=== PATIENT | male | born 1995 | race Caucasian/White ===

== ENCOUNTER 2024-05-01 11:01 | Inpatient (IN) | payer OTHER ==
[2024-05-01 13:37] VITALS: BMI 25.9
[2024-05-01] MEDS ORDERED: Dextrose 5 %-0.45 % NaCl 1,000 ML IV PRN (13:50)
[2024-05-01] MEDS ORDERED: Senokot S 8.6-50 MG TAB PO PRN (13:50)
[2024-05-01] MEDS ORDERED: Sodium Chloride 0.9% 1,000 ML IV PRN ×4 (13:50)
[2024-05-01] MEDS ORDERED: Acetaminophen 325 MG TAB PO PRN (13:50)
[2024-05-01] MEDS ORDERED: Dextrose 50% Abboject 50 ML SYRINGE SLOW IVP PRN (13:50)
[2024-05-01] MEDS ORDERED: NS 0.9% w/ 20 MEQ KCL 1,000 ML IV PRN ×2 (13:50)
[2024-05-01] MEDS ORDERED: Electrolyte Replacement Protocol FS PRN (14:15)
[2024-05-01 14:37] LABS: Anion Gap 17 mmol/L (10-20); BUN (Urea Nitrogen) 21 mg/dL (8.9-20.6); Calc. Creatinine Clearance 80 mL/min (70-130); Calcium 8.1 mg/dL (7.8-10.44); Carbon Dioxide 17 mmol/L (22-29); Chloride 116 mmol/L (98-107); Estimated GFR 65; Glucose 197 mg/dL (70-105); Potassium 4.3 mmol/L (3.5-5.1); Sodium 146 mmol/L (136-145)
[2024-05-01] MEDS: D5 1/2 NS w/20 mEq KCL 1,000 ML IV PRN (14:37)
[2024-05-01] MEDS: Sodium Bicarb 50 MEQ/50 ML Abboject 8.4% SYRINGE IVP SCH (14:37)
[2024-05-01] MEDS: Lactated Ringer's 1,000 ML IV SCH ×2 (14:37→19:07)
[2024-05-01] MEDS: INSULIN REGULAR IN 0.9 % NACL 100 ML IVPB SCH (14:43)
[2024-05-01 14:52] LABS: Phosphorus 1.1 mg/dL (2.3-4.7)
[2024-05-01] MEDS: Electrolyte Replacement Protocol 1 EACH IVPB ONE (16:13)
[2024-05-01 18:27] LABS: Anion Gap 14 mmol/L (10-20); BUN (Urea Nitrogen) 16 mg/dL (8.9-20.6); Calc. Creatinine Clearance 101 mL/min (70-130); Calcium 7.9 mg/dL (7.8-10.44); Carbon Dioxide 17 mmol/L (22-29); Chloride 114 mmol/L (98-107); Estimated GFR 86; Glucose 233 mg/dL (70-105); Potassium 4.4 mmol/L (3.5-5.1); Sodium 141 mmol/L (136-145)
[2024-05-01] MEDS ORDERED: Dextrose 5% in Water 1,000 ML IV PRN (18:37)
[2024-05-01] MEDS ORDERED: Insulin Lispro 100 UNIT/ML 10 ML VIAL SC PRN (18:37)
[2024-05-01] MEDS ORDERED: Glucagon 1 MG/ML KIT IM PRN (18:37)
[2024-05-01] MEDS: Potassium Phosphate 22 MMOL in Sodium Chloride 0.9% 250 ML 250 ML IVPB SCH (19:07)
[2024-05-01] MEDS: Insulin NPH Human Isophane 100 UNITS/ML (10 ML VIAL) SC SCH (20:43)
[2024-05-01] MEDS: Sodium Bicarbonate Tab 325 MG TAB PO SCH (20:44)
[2024-05-01] MEDS: Magnesium 2 GM/50 ML(in water) 2 GM in Premix 1 BAG IVPB SCH (21:59)
[2024-05-01 22:41] LABS: Anion Gap 11 mmol/L (10-20); BUN (Urea Nitrogen) 13 mg/dL (8.9-20.6); Calc. Creatinine Clearance 125 mL/min (70-130); Carbon Dioxide 21 mmol/L (22-29); Chloride 113 mmol/L (98-107); Estimated GFR 110; Glucose 110 mg/dL (70-105); Potassium 3.8 mmol/L (3.5-5.1); Sodium 141 mmol/L (136-145)
[2024-05-02 01:56] LABS: #Basophils Less than 0.03 10x3/uL (0.0-0.2); #Eosinophils Less than 0.03 10x3/uL (0.0-0.7); %Basophils 0.1 % (0.0-1.0); %Eosinophils 0.1 % (0.0-10.0); %Lymphocytes 9.5 % (21.0-51.0); %Neutrophils 80.7 % (42.0-75.0); Hematocrit 34.2 % (42.0-52.0); Mean Corpuscular HGB CONC 35.1 g/dL (32.0-36.0); Mean Corpuscular Hemoglobin 28.9 pg (27.0-31.0); Mean Corpuscular Volume 82.4 fL (78.0-98.0); Mean Platelet Volume 8.9 fL (7.4-10.4); Platelet Count 245 10x3/uL (130-400); RBC Distribution Width 12.8 % (11.5-14.5); Red Blood Cell (RBC) Count 4.15 mill/uL (4.70-6.10)
[2024-05-02] MEDS: Ondansetron PF 4 MG/2 ML Vial IVP PRN (02:13)
[2024-05-02 02:15] LABS: Anion Gap 14 mmol/L (10-20); BUN (Urea Nitrogen) 10 mg/dL (8.9-20.6); Calc. Creatinine Clearance 117 mL/min (70-130); Carbon Dioxide 20 mmol/L (22-29); Chloride 110 mmol/L (98-107); Estimated GFR 103; Glucose 129 mg/dL (70-105); Potassium 3.5 mmol/L (3.5-5.1); Sodium 140 mmol/L (136-145)
[2024-05-02 02:35] LABS: Calcium 8.1 mg/dL (7.8-10.44)
[2024-05-02 03:00] LABS: ALT (SGPT) 11 U/L (8-55); AST (SGOT) 12 U/L (5-34); Albumin 3.1 g/dL (3.5-5.0); Alkaline Phosphatase 91 U/L (40-110); Anion Gap 13 mmol/L (10-20); BUN (Urea Nitrogen) 11 mg/dL (8.9-20.6); Bilirubin, Total 0.4 mg/dL (0.2-1.2); Calc. Creatinine Clearance 118 mL/min (70-130); Calcium 8.2 mg/dL (7.8-10.44); Carbon Dioxide 21 mmol/L (22-29); Chloride 110 mmol/L (98-107); Estimated GFR 104; Globulin 2.6 g/dL (2.4-3.5); Glucose 129 mg/dL (70-105); Phosphorus 2.5 mg/dL (2.3-4.7); Potassium 3.5 mmol/L (3.5-5.1); Protein, Total 5.7 g/dL (6.0-8.3); Sodium 140 mmol/L (136-145)
[2024-05-02 07:15] LABS: Anion Gap 14 mmol/L (10-20); BUN (Urea Nitrogen) 8 mg/dL (8.9-20.6); Calc. Creatinine Clearance 156 mL/min (70-130); Calcium 8.1 mg/dL (7.8-10.44); Carbon Dioxide 22 mmol/L (22-29); Chloride 111 mmol/L (98-107); Estimated GFR 122; Glucose 76 mg/dL (70-105); Potassium 3.2 mmol/L (3.5-5.1); Sodium 144 mmol/L (136-145)
[2024-05-02] MEDS: Insulin NPH Human Isophane 100 UNITS/ML (10 ML VIAL) SC SCH (07:40)
[2024-05-02] MEDS: Potassium Chloride 20 MEQ TAB PO SCH (08:29)
[2024-05-02] MEDS: Enoxaparin 40 MG (0.4 mL) SYRINGE SC SCH (08:29)
[2024-05-02] MEDS: FLUoxetine HCl 20 MG CAP PO SCH (08:29)
[2024-05-02] MEDS: Insulin Lispro 100 UNIT/ML 10 ML VIAL SC PRN (11:01)
[2024-05-02] MEDS ORDERED: Electrolyte Replacement Protocol 1 EACH FS SCH (12:15)
[2024-05-02] MEDS: Ciprofloxacin 500 MG TAB PO SCH ×2 (12:40→20:28)
[2024-05-02] MEDS: Calcium Carbonate 500 MG ChewTAB PO PRN (12:41)
[2024-05-02] MEDS ORDERED: Magnesium 2 GM/50 ML(in water) 2 GM in Premix 1 BAG IVPB SCH (21:00)
[2024-05-03 04:49] LABS: #Basophils Less than 0.03 10x3/uL (0.0-0.2); %Basophils 0.2 % (0.0-1.0); %Eosinophils 0.4 % (0.0-10.0); %Lymphocytes 23.7 % (21.0-51.0); %Neutrophils 66.5 % (42.0-75.0); Hematocrit 33.9 % (42.0-52.0); Mean Corpuscular HGB CONC 35.4 g/dL (32.0-36.0); Mean Corpuscular Volume 81.9 fL (78.0-98.0); Mean Platelet Volume 9.5 fL (7.4-10.4); Platelet Count 210 10x3/uL (130-400); RBC Distribution Width 12.7 % (11.5-14.5); Red Blood Cell (RBC) Count 4.14 mill/uL (4.70-6.10)
[2024-05-03 05:33] LABS: Anion Gap 12 mmol/L (10-20); BUN (Urea Nitrogen) 4 mg/dL (8.9-20.6); Calc. Creatinine Clearance 160 mL/min (70-130); Calcium 8.3 mg/dL (7.8-10.44); Carbon Dioxide 27 mmol/L (22-29); Chloride 104 mmol/L (98-107); Estimated GFR 123; Glucose 149 mg/dL (70-105); Sodium 140 mmol/L (136-145)
[2024-05-03] MEDS: Potassium Chloride 20 MEQ TAB PO SCH ×2 (08:28→12:27)
[2024-05-03 08:37] VITALS: BP 146/92; TEMP 98.9
== END 2024-05-03 15:13 | DRG 638 ==
LOC: EEVIPCON 12:57 → IMCU/EMU 12:57 → T4-A 05-02 11:31
PROVIDERS: ADMIT Internal Medicine; ATTEND Internal Medicine
DX: E10.10 Type 1 diabetes mellitus with ketoacidosis without coma (principal); N17.9 Acute kidney failure, unspecified; R65.10 Systemic inflammatory response syndrome (SIRS) of non-infectious origin without acute organ dysfunction; E10.65 Type 1 diabetes mellitus with hyperglycemia; D72.829 Elevated white blood cell count, unspecified; F39 Unspecified mood [affective] disorder
CPT/HCPCS: 36415; 36416; 80048; 80053; 81001; 82010; 82310; 82805; 83605; 83690; 83735; 84100; 84484; 85025; 87040; 93005; 94760; J0696; J1650; J1815; J2405; J2765; J3475; J3480; J3490; J7050; J7120

== ENCOUNTER 2024-06-19 23:33 | Inpatient (IN) | payer OTHER ==
[2024-06-20 03:29] VITALS: BMI 24.9
[2024-06-20] MEDS ORDERED: Acetaminophen 650 MG Suppository PR PRN (04:22)
[2024-06-20] MEDS ORDERED: Ondansetron ODT 4 MG TAB PO PRN (04:22)
[2024-06-20] MEDS ORDERED: Dextrose 5% in Water 1,000 ML IV PRN (04:22)
[2024-06-20] MEDS ORDERED: Acetaminophen 325 MG TAB PO PRN (04:22)
[2024-06-20] MEDS ORDERED: Dextrose 50% Abboject 50 ML SYRINGE SLOW IVP PRN ×2 (04:22→04:26)
[2024-06-20] MEDS ORDERED: Glucagon 1 MG/ML KIT IM PRN (04:22)
[2024-06-20] MEDS ORDERED: Electrolyte Replacement Protocol 1 EACH IVPB PRN (04:26)
[2024-06-20] MEDS ORDERED: Sodium Chloride 0.9% 1,000 ML IV PRN ×4 (04:26)
[2024-06-20] MEDS ORDERED: NS 0.9% w/ 20 MEQ KCL 1,000 ML IV PRN ×2 (04:26)
[2024-06-20] MEDS ORDERED: Dextrose 5 %-0.45 % NaCl 1,000 ML IV PRN (04:26)
[2024-06-20] MEDS: Ondansetron PF 4 MG/2 ML Vial IVP PRN (04:35)
[2024-06-20] MEDS: INSULIN REGULAR IN 0.9 % NACL 100 ML IVPB SCH (04:38)
[2024-06-20] MEDS: D5 1/2 NS w/20 mEq KCL 1,000 ML IV PRN (06:00)
[2024-06-20 06:29] LABS: Anion Gap 12 mmol/L (10-20); BUN (Urea Nitrogen) 14 mg/dL (8.9-20.6); Calc. Creatinine Clearance 126 mL/min (70-130); Calcium 8.6 mg/dL (7.8-10.44); Carbon Dioxide 16 mmol/L (22-29); Chloride 114 mmol/L (98-107); Estimated GFR 114; Glucose 177 mg/dL (70-105); Potassium 3.7 mmol/L (3.5-5.1); Sodium 138 mmol/L (136-145)
[2024-06-20 08:56] LABS: Anion Gap 12 mmol/L (10-20); BUN (Urea Nitrogen) 13 mg/dL (8.9-20.6); Calc. Creatinine Clearance 129 mL/min (70-130); Calcium 8.4 mg/dL (7.8-10.44); Carbon Dioxide 18 mmol/L (22-29); Chloride 112 mmol/L (98-107); Estimated GFR 117; Glucose 193 mg/dL (70-105); Potassium 3.7 mmol/L (3.5-5.1); Sodium 138 mmol/L (136-145)
[2024-06-20] MEDS: Enoxaparin 40 MG (0.4 mL) SYRINGE SC SCH (09:50)
[2024-06-20] MEDS: Insulin Glargine 30 UNITS/0.3 ML VIAL SC SCH ×2 (09:51→22:31)
[2024-06-20 13:10] LABS: Anion Gap 12 mmol/L (10-20); BUN (Urea Nitrogen) 11 mg/dL (8.9-20.6); Calc. Creatinine Clearance 141 mL/min (70-130); Calcium 8.3 mg/dL (7.8-10.44); Carbon Dioxide 18 mmol/L (22-29); Chloride 110 mmol/L (98-107); Estimated GFR 120; Glucose 194 mg/dL (70-105); Potassium 3.6 mmol/L (3.5-5.1); Sodium 136 mmol/L (136-145)
[2024-06-21 02:53] VITALS: TEMP 98.1
[2024-06-21 06:04] LABS: ALT (SGPT) 17 U/L (8-55); AST (SGOT) 20 U/L (5-34); Albumin 3.7 g/dL (3.5-5.0); Alkaline Phosphatase 84 U/L (40-110); Anion Gap 11 mmol/L (10-20); BUN (Urea Nitrogen) 11 mg/dL (8.9-20.6); Bilirubin, Total 0.6 mg/dL (0.2-1.2); Calc. Creatinine Clearance 154 mL/min (70-130); Calcium 8.5 mg/dL (7.8-10.44); Carbon Dioxide 22 mmol/L (22-29); Chloride 110 mmol/L (98-107); Estimated GFR 124; Globulin 2.7 g/dL (2.4-3.5); Glucose 76 mg/dL (70-105); Magnesium 1.7 mg/dL (1.6-2.6); Protein, Total 6.4 g/dL (6.0-8.3); Sodium 140 mmol/L (136-145)
[2024-06-21 06:17] LABS: #Basophils Less than 0.03 10x3/uL (0.0-0.2); %Basophils 0.3 % (0.0-1.0); %Eosinophils 1.1 % (0.0-10.0); %Lymphocytes 27.8 % (21.0-51.0); %Monocytes 12.7 % (0.0-10.0); %Neutrophils 57.9 % (42.0-75.0); Hematocrit 41.9 % (42.0-52.0); Hemoglobin 14.6 g/dL (14.0-18.0); Mean Corpuscular HGB CONC 34.8 g/dL (32.0-36.0); Mean Corpuscular Hemoglobin 28.8 pg (27.0-31.0); Mean Corpuscular Volume 82.6 fL (78.0-98.0); Mean Platelet Volume 10.1 fL (7.4-10.4); Platelet Count 225 10x3/uL (130-400); RBC Distribution Width 12.9 % (11.5-14.5); Red Blood Cell (RBC) Count 5.07 mill/uL (4.70-6.10)
[2024-06-21] MEDS: Magnesium 2 GM/50 ML(in water) 2 GM in Premix 1 BAG IVPB SCH (08:30)
[2024-06-21] MEDS: Potassium Chloride 20 MEQ TAB PO SCH (08:31)
[2024-06-21] MEDS ORDERED: Insulin Regular, Human 100 UNIT/ML 10 ML VIAL SC SCH (12:15)
[2024-06-21 13:09] VITALS: BP 126/86
== END 2024-06-21 13:17 | DRG 639 ==
LOC: EEVIPCON 06-20 03:11 → CCU 06-20 03:11 → OBSVTOIN 06-20 04:22 → IMCU/EMU 06-20 07:19 → MSONC 06-20 20:13
PROVIDERS: ADMIT Family Medicine; ATTEND Family Medicine
DX: E10.10 Type 1 diabetes mellitus with ketoacidosis without coma (principal); F32.A Depression, unspecified; F41.9 Anxiety disorder, unspecified
CPT/HCPCS: 36415; 36416; 71045; 80053; 81001; 82010; 82805; 83605; 83690; 83735; 83930; 84100; 85025; 93005; 96374; 96375; 96376; J1650; J1815; J2405; J2550; J3475; J3480

== ENCOUNTER 2024-08-01 09:51 | Inpatient (IN) | payer OTHER ==
[2024-08-01 10:18] LABS: Actual Bicarbonate (HCO3v) 17.7 mEq/L (22-28); Analyzer IN Cardio ER; Base Excess -7.4 mEq/L (-2.0 to +3.0); Calcium, Ionized (venous) 1.14 mmol/L (1.16-1.32); Chloride (VBG) 100 mmol/L (98-106); Hematocrit-VBG 50 % (42.0-52.0); Hemoglobin (Hb) 16.9 g/dL (13.2-17.3); Potassium (VBG) 4.55 mmol/L (3.70-5.30); Sodium 139 mmol/L (133-146); pH (venous) 7.319 (7.32-7.43)
[2024-08-01] MEDS ORDERED: Acetaminophen 500 MG TAB ONE (10:23)
[2024-08-01 10:30] LABS: #Basophils Less than 0.03 10x3/uL (0.0-0.2); #Eosinophils Less than 0.03 10x3/uL (0.0-0.7); %Basophils 0.1 % (0.0-1.0); %Lymphocytes 6.7 % (21.0-51.0); %Monocytes 6.1 % (0.0-10.0); %Neutrophils 86.2 % (42.0-75.0); Hematocrit 45.8 % (42.0-52.0); Hemoglobin 16.3 g/dL (14.0-18.0); Mean Corpuscular HGB CONC 35.6 g/dL (32.0-36.0); Mean Corpuscular Hemoglobin 28.9 pg (27.0-31.0); Mean Corpuscular Volume 81.2 fL (78.0-98.0); Mean Platelet Volume 9.7 fL (7.4-10.4); Platelet Count 252 10x3/uL (130-400); Red Blood Cell (RBC) Count 5.64 mill/uL (4.70-6.10)
[2024-08-01] MEDS ORDERED: Ondansetron PF 4 MG/2 ML Vial ONE (10:32)
[2024-08-01 10:50] LABS: Anion Gap 23 mmol/L (10-20); BUN (Urea Nitrogen) 25 mg/dL (8.9-20.6); Calc. Creatinine Clearance 0 mL/min (70-130); Carbon Dioxide 18 mmol/L (22-29); Chloride 103 mmol/L (98-107); Potassium 4.7 mmol/L (3.5-5.1); Sodium 139 mmol/L (136-145)
[2024-08-01 10:51] LABS: ALT (SGPT) 10 U/L (Less than 45); AST (SGOT) 15 U/L (11-34); Albumin 4.2 g/dL (3.1-4.5); Alkaline Phosphatase 90 U/L (40-110); Bilirubin, Total 0.6 mg/dL (0.3-1.2); Calcium 8.9 mg/dL (7.8-10.44); Estimated GFR 101; Globulin 3.4 g/dL (2.4-3.5); Glucose 272 mg/dL (70-105); Lipase 8 U/L (8-78); Magnesium 1.8 mg/dL (1.6-2.6); Protein, Total 7.6 g/dL (6.0-8.3)
[2024-08-01 10:54] LABS: Troponin I Less than 0.010 ng/mL (< 0.028)
[2024-08-01] MEDS ORDERED: INSULIN REGULAR IN 0.9 % NACL 100 ML ONE (12:00)
[2024-08-01] MEDS ORDERED: Promethazine HCl 25 MG/ML VIAL ONE (12:29)
[2024-08-01] MEDS ORDERED: D5 1/2 NS w/20 mEq KCL 1,000 ML IV PRN (12:40)
[2024-08-01] MEDS ORDERED: Sodium Chloride 0.9% 1,000 ML IV PRN ×4 (12:40)
[2024-08-01] MEDS ORDERED: Electrolyte Replacement Protocol 1 EACH IVPB SCH (12:40)
[2024-08-01] MEDS ORDERED: NS 0.9% w/ 20 MEQ KCL 1,000 ML IV PRN ×2 (12:40)
[2024-08-01] MEDS ORDERED: Dextrose 50% Abboject 50 ML SYRINGE SLOW IVP PRN ×2 (12:40→15:23)
[2024-08-01] MEDS ORDERED: Dextrose 5 %-0.45 % NaCl 1,000 ML IV PRN (12:40)
[2024-08-01] MEDS ORDERED: INSULIN REGULAR IN 0.9 % NACL 100 ML IVPB SCH (12:45)
[2024-08-01 13:41] LABS: Hemoglobin A1c 9.9 % (4.0-6.0)
[2024-08-01 14:56] LABS: Anion Gap 15 mmol/L (10-20); BUN (Urea Nitrogen) 23 mg/dL (8.9-20.6); Calc. Creatinine Clearance 0 mL/min (70-130); Calcium 8.3 mg/dL (7.8-10.44); Carbon Dioxide 18 mmol/L (22-29); Chloride 112 mmol/L (98-107); Estimated GFR 122; Glucose 172 mg/dL (70-105); Potassium 3.6 mmol/L (3.5-5.1); Sodium 141 mmol/L (136-145)
[2024-08-01 14:57] LABS: Lactic Acid 1.43 mmol/L (0.50-2.20)
[2024-08-01 15:04] LABS: Troponin I Less than 0.010 ng/mL (< 0.028)
[2024-08-01 15:12] VITALS: BMI 24.9
[2024-08-01] MEDS ORDERED: Dextrose 5% in Water 1,000 ML IV PRN (15:23)
[2024-08-01] MEDS ORDERED: Glucagon 1 MG/ML KIT IM PRN (15:23)
[2024-08-01] MEDS: Ondansetron ODT 4 MG TAB PO PRN (16:10)
[2024-08-01] MEDS: Magnesium 2 GM/50 ML(in water) 2 GM in Premix 1 BAG IVPB SCH (17:45)
[2024-08-01] MEDS: Ondansetron PF 4 MG/2 ML Vial IVP SCH (19:17)
[2024-08-01] MEDS: Insulin Glargine 30 UNITS/0.3 ML VIAL SC SCH (22:07)
[2024-08-01 23:39] LABS: Anion Gap 21 mmol/L (10-20); BUN (Urea Nitrogen) 15 mg/dL (8.9-20.6); Calc. Creatinine Clearance 144 mL/min (70-130); Calcium 8.3 mg/dL (7.8-10.44); Carbon Dioxide 15 mmol/L (22-29); Chloride 109 mmol/L (98-107); Estimated GFR 122; Glucose 253 mg/dL (70-105); Potassium 3.9 mmol/L (3.5-5.1); Sodium 141 mmol/L (136-145)
[2024-08-01 23:46] LABS: Troponin I 0.022 ng/mL (< 0.028)
[2024-08-02] MEDS: Ondansetron PF 4 MG/2 ML Vial IVP PRN ×2 (00:13→18:02)
[2024-08-02] MEDS: Promethazine HCl 12.5 MG in Sodium Chloride 0.9% 50 ML IVPB SCH (05:13)
[2024-08-02] MEDS: Insulin Lispro 100 UNIT/ML 10 ML VIAL SC PRN ×2 (05:31→12:15)
[2024-08-02 07:17] LABS: #Basophils Less than 0.03 10x3/uL (0.0-0.2); #Eosinophils Less than 0.03 10x3/uL (0.0-0.7); %Basophils 0.2 % (0.0-1.0); %Lymphocytes 6.7 % (21.0-51.0); %Monocytes 5.4 % (0.0-10.0); %Neutrophils 87.1 % (42.0-75.0); Hematocrit 44.4 % (42.0-52.0); Hemoglobin 15.2 g/dL (14.0-18.0); Mean Corpuscular HGB CONC 34.2 g/dL (32.0-36.0); Mean Corpuscular Hemoglobin 28.6 pg (27.0-31.0); Mean Corpuscular Volume 83.5 fL (78.0-98.0); Mean Platelet Volume 9.6 fL (7.4-10.4); Platelet Count 261 10x3/uL (130-400); RBC Distribution Width 12.5 % (11.5-14.5); Red Blood Cell (RBC) Count 5.32 mill/uL (4.70-6.10)
[2024-08-02 07:59] LABS: Anion Gap 22 mmol/L (10-20); BUN (Urea Nitrogen) 13 mg/dL (8.9-20.6); Calc. Creatinine Clearance 154 mL/min (70-130); Calcium 8.8 mg/dL (7.8-10.44); Carbon Dioxide 15 mmol/L (22-29); Chloride 108 mmol/L (98-107); Estimated GFR 125; Glucose 274 mg/dL (70-105); Potassium 4.1 mmol/L (3.5-5.1); Sodium 141 mmol/L (136-145)
[2024-08-02] MEDS: Magnesium 2 GM/50 ML(in water) 2 GM in Premix 1 BAG IVPB SCH (08:33)
[2024-08-02] MEDS: Enoxaparin 40 MG (0.4 mL) SYRINGE SC SCH (08:33)
[2024-08-02] MEDS: Sodium Chloride 0.9% 1,000 ML IV SCH ×2 (18:02→18:31)
[2024-08-02] MEDS: Insulin Glargine 30 UNITS/0.3 ML VIAL SC SCH (21:12)
[2024-08-02] MEDS: traMADol HCl 50 MG TAB PO PRN (21:16)
[2024-08-03 06:48] LABS: #Basophils Less than 0.03 10x3/uL (0.0-0.2); #Eosinophils Less than 0.03 10x3/uL (0.0-0.7); %Basophils 0.1 % (0.0-1.0); %Eosinophils 0.1 % (0.0-10.0); %Lymphocytes 17.1 % (21.0-51.0); %Monocytes 9.8 % (0.0-10.0); %Neutrophils 72.5 % (42.0-75.0); Hematocrit 40.8 % (42.0-52.0); Hemoglobin 14.5 g/dL (14.0-18.0); Mean Corpuscular HGB CONC 35.5 g/dL (32.0-36.0); Mean Corpuscular Hemoglobin 29.1 pg (27.0-31.0); Mean Corpuscular Volume 81.8 fL (78.0-98.0); Mean Platelet Volume 9.2 fL (7.4-10.4); Platelet Count 202 10x3/uL (130-400); Red Blood Cell (RBC) Count 4.99 mill/uL (4.70-6.10)
[2024-08-03 07:09] LABS: ALT (SGPT) 8 U/L (Less than 45); AST (SGOT) 12 U/L (11-34); Albumin 3.3 g/dL (3.1-4.5); Alkaline Phosphatase 75 U/L (40-110); Anion Gap 16 mmol/L (10-20); BUN (Urea Nitrogen) 9 mg/dL (8.9-20.6); Bilirubin, Total 0.8 mg/dL (0.3-1.2); Calc. Creatinine Clearance 197 mL/min (70-130); Carbon Dioxide 20 mmol/L (22-29); Chloride 105 mmol/L (98-107); Estimated GFR 133; Globulin 2.6 g/dL (2.4-3.5); Glucose 177 mg/dL (70-105); Potassium 3.4 mmol/L (3.5-5.1); Protein, Total 5.9 g/dL (6.0-8.3); Sodium 138 mmol/L (136-145)
[2024-08-03] MEDS: Potassium Chloride 20 MEQ TAB PO SCH (08:58)
[2024-08-03] MEDS ORDERED: Metoclopramide HCl 10 MG (2 mL) VIAL IVP PRN (12:41)
[2024-08-03] MEDS: Metoclopramide HCl 10 MG (2 mL) VIAL IVP SCH (13:17)
[2024-08-03] MEDS: Pantoprazole 40 MG VIAL IVP SCH ×2 (14:16→20:59)
[2024-08-03] MEDS: Dicyclomine 10 MG CAP PO SCH (14:25)
[2024-08-03] MEDS ORDERED: Dicyclomine 10 MG CAP PO SCH (17:00)
[2024-08-03] MEDS: Acetaminophen 325 MG TAB PO PRN (21:02)
[2024-08-03] MEDS: traMADol HCl 50 MG TAB PO PRN (21:03)
[2024-08-04 04:59] LABS: #Basophils 0.03 10x3/uL (0.0-0.2); %Basophils 0.5 % (0.0-1.0); %Eosinophils 0.7 % (0.0-10.0); %Lymphocytes 27.6 % (21.0-51.0); %Monocytes 11.3 % (0.0-10.0); %Neutrophils 59.2 % (42.0-75.0); Hematocrit 41.3 % (42.0-52.0); Hemoglobin 14.7 g/dL (14.0-18.0); Mean Corpuscular HGB CONC 35.6 g/dL (32.0-36.0); Mean Corpuscular Hemoglobin 28.9 pg (27.0-31.0); Mean Corpuscular Volume 81.1 fL (78.0-98.0); Mean Platelet Volume 9.6 fL (7.4-10.4); Platelet Count 198 10x3/uL (130-400); RBC Distribution Width 11.6 % (11.5-14.5); Red Blood Cell (RBC) Count 5.09 mill/uL (4.70-6.10)
[2024-08-04 05:20] LABS: Anion Gap 13 mmol/L (10-20); BUN (Urea Nitrogen) 5 mg/dL (8.9-20.6); Calc. Creatinine Clearance 211 mL/min (70-130); Calcium 8.1 mg/dL (7.8-10.44); Carbon Dioxide 23 mmol/L (22-29); Chloride 103 mmol/L (98-107); Estimated GFR 136; Glucose 201 mg/dL (70-105); Potassium 3.1 mmol/L (3.5-5.1); Sodium 136 mmol/L (136-145)
[2024-08-04] MEDS: Potassium Chloride 20 MEQ TAB PO SCH (08:43)
[2024-08-04] MEDS: Sodium Chloride 0.9% 1,000 ML IV SCH (20:07)
[2024-08-04] MEDS: Pantoprazole 40 MG DR.TAB PO SCH (20:08)
[2024-08-04] MEDS: Metoclopramide HCl 10 MG TAB PO SCH (22:16)
[2024-08-05 06:33] LABS: Anion Gap 12 mmol/L (10-20); BUN (Urea Nitrogen) 7 mg/dL (8.9-20.6); Calc. Creatinine Clearance 193 mL/min (70-130); Calcium 8.4 mg/dL (7.8-10.44); Carbon Dioxide 26 mmol/L (22-29); Chloride 107 mmol/L (98-107); Estimated GFR 132; Glucose 66 mg/dL (70-105); Sodium 142 mmol/L (136-145)
[2024-08-05] MEDS: Potassium Chloride 20 MEQ TAB PO SCH (08:18)
[2024-08-05 11:29] VITALS: BP 114/74; TEMP 98.3
== END 2024-08-05 12:19 | DRG 639 ==
LOC: ERS 09:51 → SUATTDRO 09:51 → ERHOLD 12:39 → EEVIPCON 12:39 → IMCU/EMU 14:42 → T4-B 20:12
PROVIDERS: ADMIT Family Medicine; ATTEND Family Medicine
DX: E10.10 Type 1 diabetes mellitus with ketoacidosis without coma (principal); E87.6 Hypokalemia; T38.3X6A Underdosing of insulin and oral hypoglycemic [antidiabetic] drugs, initial encounter; D72.828 Other elevated white blood cell count; Z79.4 Long term (current) use of insulin; Z79.899 Other long term (current) drug therapy; Z91.148 Patient's other noncompliance with medication regimen for other reason
CPT/HCPCS: 36415; 36416; 71045; 80048; 80053; 82010; 82805; 83036; 83605; 83690; 83735; 84100; 84443; 84484; 85025; 87040; 87428; 93005; 94760; 96361; 96365; 96366; 96368; 96375; J1650; J1815; J2405; J2470; J2550; J2765; J3475; J7030; Q0162